=== PATIENT | male | born 1960 | race African-American/Black ===

== ENCOUNTER 2018-01-12 02:20 | Emergency (ER) | payer MEDICARE, MEDICAID ==
[2018-01-12] MEDS ORDERED: LIDOCAINE 2% VISCOUS SOLN 20 ML UDCUP PO ONE (02:56)
[2018-01-12] MEDS ORDERED: METOCLOPRAMIDE HCL ORAL SOLN 10 MG/10 ML UDCUP PO ONE (02:56)
[2018-01-12] MEDS ORDERED: MAG HYDROX/AL HYDROX/SIMETH SUSP 30 ML UDCUP PO ONE (02:56)
[2018-01-12] MEDS ORDERED: NORMAL SALINE 1000 ML 1,000 ML IV ONE (02:56)
--- NOTE | 2018-01-12 02:59 | ER Document Report ---
ED General - General Chief Complaint: Chest Pain Stated Complaint: NOT FEELING WELL Time Seen by Provider: 01/12/18 02:56 TRAVEL OUTSIDE OF THE [place] IN LAST 30 DAYS: No - HPI Notes: Patient is a 57-year-old male with a history of diabetes, hypertension, tobacco abuse who presents to the ED complaining of epigastric abdominal pain 2 days. Patient states that the pain has been steady the entire time and does not worsen with ambulation. Patient states that pushing in his stomach and using his muscles to sit upright make the pain worse. He has not had any hematemesis , melena, or hematochezia. Patient states that he is still eating and drinking without any difficulties otherwise. He is urinating normally having normal bowel movements. He denies any drug allergies. Patient has not had any cardiac stents or bypass performed in the past. He is not on any blood thinners. Patient states that he has been taking his medications at home regularly without any side effects to note. Denies any headache, fever, neck pain, URI, sore throat, chest pain, palpitations, syncope, cough, shortness of breath, wheeze, dyspnea, nausea/vomiting/diarrhea, urinary retention, dysuria, hematuria, loss of control of bowel or bladder, numbness/tingling, saddle anesthesia, muscle paralysis/weakness, or rash. - Related Data Allergies/Adverse Reactions: No Known Allergies Allergy (Unverified 01/13/15 22:32) Past Medical History - Social History Smoking Status: Current Every Day Smoker Family History: None - Past Medical History Cardiac Medical History: Reports: Hx Heart Attack, Hx Hypercholesterolemia, Hx Hypertension Endocrine Medical History: Reports: Hx Diabetes Mellitus Type 2 Review of Systems - Review of Systems -: Yes All other systems reviewed and negative Physical Exam - Vital signs Vitals: Temp Pulse Resp BP Pulse Ox 98.4 F 92 24 H 151/91 H 98 01/12/18 02:34 01/12/18 02:34 01/12/18 02:34 01/12/18 02:34 01/12/18 02:34 - Notes Notes: PHYSICAL EXAMINATION: GENERAL: Well-appearing, well-nourished and in no acute distress. A&Ox4. Answers questions appropriately. HEAD: Atraumatic, normocephalic. EYES: Pupils equal round and reactive to light, extraocular movements intact, sclera anicteric, conjunctiva are normal. ENT: Nares patent and without discharge. oropharynx clear without exudates. No tonsilar hypertrophy or erythema. Moist mucous membranes. NECK: Normal range of motion, supple without lymphadenopathy Chest: non-tender. equal rise/fall. LUNGS: Breath sounds clear to auscultation bilaterally and equal. No wheezes rales or rhonchi. HEART: Regular rate and rhythm without murmurs, rubs, gallops. ABDOMEN: Soft, nondistended abdomen. No guarding, no rebound. No masses appreciated. Normal bowel sounds present. No CVA tenderness bilaterally. + moderate epigastric tenderness (corresponds to pain described). No white sign. No tenderness at Mcburney point. Musculoskeletal: FROM to passive/active. Strength 5+/5. Extremities: No cyanosis, clubbing, or edema b/l. Peripheral pulses 2+. Capillary refill less than 3 seconds. NEUROLOGICAL: Cranial nerves grossly intact. Normal speech, normal gait. Normal sensory, motor exams PSYCH: Normal mood, normal affect. SKIN: Warm, Dry, normal turgor, no rashes or lesions noted. Course - Re-evaluation Re-evalutation: 01/12/18 05:15 Patient is an afebrile, well-hydrated, 57-year-old male who presents to the ED with epigastric abdominal pain, suspect gastritis. Vitals are acceptable. PE is otherwise unremarkable. CBC, CMP, lipase, cardiac enzymes/EKG, chest x-ray were all unremarkable for any acute pathology. GI cocktail was provided which improved symptoms. Patient has moderate epigastric abdominal tenderness to palpation which correlates with his pain described. His H&P provides a strong case for a GI issue at this time and not cardiac. Patient is ambulatory without any dyspnea on exertion or worsening pain. Patient was also given Zofran as well as fluids. No other labs or imaging warranted at this time based on H&P. Low suspicion/risk for acute appendicitis, bowel obstruction, acute cholecystitis, perforated diverticulitis, incarcerated hernia, pancreatitis, perforated ulcer, peritonitis, sepsis, testicular torsion, or other systemic emergent condition at this time. Patient is aware that his condition can change from initial presentation and he needs to monitor symptoms closely and seek medical attention if any acute changes. I will send him home with a prescription for Carafate as well as omeprazole. Conservative measures otherwise for symptoms. Recheck with PCM in 2-3 days. Consider consult with a pay station collector. Return to the ED with any worsening/concerning symptoms otherwise as reviewed in discharge. Patient is in agreement. - Vital Signs Vital signs: Temp Pulse Resp BP Pulse Ox 98.4 F 92 24 H 151/91 H 98 01/12/18 02:34 01/12/18 02:34 01/12/18 02:34 01/12/18 02:34 01/12/18 02:34 - Laboratory Result Diagrams: 01/12/18 03:10 01/12/18 04:09 Laboratory results interpreted by me: 01/12/18 01/12/18 03:01 04:09 Chloride 108 H Carbon Dioxide 21 L Glucose 164 H POC Glucose 165 H Creatine Kinase 261 H Discharge - Discharge Clinical Impression: Epigastric abdominal pain Condition: Stable Disposition: HOME, SELF-CARE Instructions: Antacid Therapy ([facility]), Evaluation of Upper Abdominal Pain ([facility]) Additional Instructions: Maintain adequate fluid and food intake Avoid alcohol, spices, citrus, caffeine, eating large meals, eating late at night Zofran as needed tylenol if needed Monitor for any worsening symptoms Make sure you are staying hydrated enough to urinate and have normal BM's Recheck with your PCM in 2-3 days Consider consult with Gastroenterology for ongoing/worsening symptoms Return to the ED with any worsening symptoms and/or development of fever, headache, chest pain, palpitations, syncope, shortness of breath, trouble breathing, abdominal pain, n/v/d, blood in stool/urine, weakness, or other worsening symptoms that are concerning to you. Prescriptions: RX: Omeprazole 20 mg PO DAILY #30 tablet.dr Rodriguezralfate [Carafate] 1 gm PO QID PRN #420 ml PRN Reason: Forms: Elevated Blood Pressure, Smoking Cessation Education Referrals: KATHRINE NUNN MD [ACTIVE STAFF] - Follow up as needed MARIA C FLORES MD [ACTIVE STAFF] - Follow up as needed
[2018-01-12 03:21] LABS: ABSOLUTE EOSINOPHILS # (AUTO) 0.2 10^3/uL (0.0-0.6); ABSOLUTE LYMPHOCYTES (AUTO) 3.1 10^3/uL (0.5-4.7); ABSOLUTE MONOCYTES (AUTO) 0.5 10^3/uL (0.1-1.4); BASOPHILS % (AUTO) 0.2 % (0-2); HEMATOCRIT 44.3 % (37.9-51.0); HEMOGLOBIN 15.3 g/dL (13.5-17.0); MEAN CORPUSCULAR HEMOGLOBIN 32.6 pg (27.0-33.4); MEAN CORPUSCULAR HGB CONC 34.6 g/dL (32.0-36.0); MEAN CORPUSCULAR VOLUME 95 fl (80-97); MONOCYTES % (AUTO) 6.3 % (3-13); PLATELET COUNT 232 10^3/uL (150-450); RED BLOOD COUNT 4.69 10^6/uL (4.35-5.55); SEGMENTED NEUTROPHILS % (AUTO) 51.5 % (42-78); TOTAL CELLS COUNTED % (AUTO) 100 %; WHITE BLOOD COUNT 7.8 10^3/uL (4.0-10.5)
[2018-01-12 03:38] LABS: INTERNATIONAL RATION (INR) 0.97; PROTHROMBIN TIME 13.6 SEC (11.4-15.4)
[2018-01-12 03:58] LABS: CREATINE KINASE MB 0.94 ng/mL (<4.55)
[2018-01-12 04:00] LABS: TROPONIN I < 0.012 ng/mL
--- NOTE | 2018-01-12 04:04 | RADIOLOGY REPORT (SQ) ---
EXAM DESCRIPTION: CHEST SINGLE VIEW CLINICAL HISTORY: 57 years Male, chest pain COMPARISON: None. NUMBER OF VIEWS/TECHNIQUE: 1/AP LIMITATIONS: None. FINDINGS: Normal lung volume, clear parenchyma, normal cardiac silhouette, and intact bony thorax. IMPRESSION: No acute cardiopulmonary findings.
[2018-01-12 04:37] LABS: ALANINE AMINOTRANSFERASE 25 U/L (21-72); ALBUMIN 4.4 g/dL (3.5-5.0); ALKALINE PHOSPHATASE 67 U/L (38-126); ANION GAP 15 (5-19); ASPARTATE AMINO TRANSFERASE 24 U/L (17-59); BILIRUBIN,DIRECT 0.2 mg/dL (0.0-0.4); BILIRUBIN,TOTAL 0.3 mg/dL (0.2-1.3); BLOOD UREA NITROGEN 10 mg/dL (7-20); CALCIUM 9.2 mg/dL (8.4-10.2); CARBON DIOXIDE 21 mmol/L (22-30); CHLORIDE 108 mmol/L (98-107); CREATINE KINASE 261 U/L (55-170); GLUCOSE 164 mg/dL (75-110); LIPASE 191.3 U/L (23-300); POTASSIUM 4.3 mmol/L (3.6-5.0); SODIUM 143.8 mmol/L (137-145); TOTAL PROTEIN 7.1 g/dL (6.3-8.2)
[2018-01-12] MEDS ORDERED: TRAMADOL HCL 50 MG TABLET PO ONE (05:14)
[2018-01-12] MEDS ORDERED: ACETAMINOPHEN 325 MG TABLET PO ONE (05:20)
[2018-01-12 05:25] VITALS: BP 142/86
--- NOTE | 2018-01-12 07:50 | EKG REPORT ---
SEVERITY:- BORDERLINE ECG - SINUS RHYTHM PROBABLE LEFT ATRIAL ABNORMALITY : Confirmed by: Turner Mendez MD 12-Jan-2018 07:48:36
== END 2018-01-12 05:22 | disposition home or self-care (01) ==
LOC: ER 02:20
DX: R10.13 Epigastric pain (principal); I10 Essential (primary) hypertension; I25.2 Old myocardial infarction; E11.9 Type 2 diabetes mellitus without complications; F17.200 Nicotine dependence, unspecified, uncomplicated
CPT/HCPCS: 93005; 99285; 36415; 82553; 82962; 82550; 83690; 85025; 85610; 80053; 84484; 71045; 93010; A9270 ×2; J3490; J7030

== ENCOUNTER 2020-10-08 10:37 | Inpatient (IN) | payer MEDICAID, MEDICARE ==
[2020-10-08] MEDS ORDERED: NORMAL SALINE 1000 ML 1,000 ML IV ONE (10:51)
[2020-10-08] MEDS ORDERED: DEXTROSE 5%-WATER 250 ML with NOREPINEPHRINE BITARTRATE 4 MG IV PRN ×2 (10:51)
--- NOTE | 2020-10-08 10:53 | ER Document Report ---
ED General - General Stated Complaint: POST ARREST/ALTERED MENTAL STATUS Time Seen by Provider: 10/08/20 10:50 Notes: 52-year-old male found down, altered mental status. Apparently was postarrest pulseless found and ACLS done by fire, EMS arrived to find him in an agonal breathing pattern altered mental status hypoxia with a "sinus arrhythmia" on his EKG Did not require shocks. IO administered fluid was given. Remained hypotensive. Was RSI intubated with rocuronium and ketamine. No other info is available. TRAVEL OUTSIDE OF THE [place] IN LAST 30 DAYS: No - Related Data Allergies/Adverse Reactions: No Known Allergies Allergy (Unverified 01/13/15 22:32) Past Medical History - General Information source: Emergency Med Personnel Cannot obtain history due to: Unstable vital signs - Social History Smoking Status: Unknown if Ever Smoked Family History: None - Past Medical History Cardiac Medical History: Reports: Hx Heart Attack, Hx Hypercholesterolemia, Hx Hypertension Endocrine Medical History: Reports: Hx Diabetes Mellitus Type 2 Renal/ Medical History: Denies: Hx Peritoneal Dialysis Review of Systems - Review of Systems Notes: REVIEW OF SYSTEMS PHYSICAL EXAMINATION General: Did Head: Atraumatic, normocephalic ENT: Tube in place no broken teeth Eyes: Unresponsive pupils 3 mm bilaterally Neck: No JVD, supple, no guarding CVS: Mild tachycardia thready pulses throughout except for carotid Resp: Good breath sounds bilaterally with bagging GI: Nondistended, soft, Ext: No deformities, no edema, right IO line in place t Back: No CVA or midline TTP Skin: Lesion versus rash in the pannus of the abdomen midline Lymphatic: No lymphadeopathy noted Neuro: Positive to painful stimulus Physical Exam - Vital signs Vitals: Resp 20 10/08/20 10:37 Course - Re-evaluation Re-evalutation: 10/08/20 11:59 Presents after what sounds like cardiorespiratory arrest from unclear etiology hypotensive on arrival Unclear clinical picture with no prehospital history and spotty information Patient was placed on [id number] and was bagged without issue. 10/08/20 12:03 EKG does not show cause. Ventilator adjusted given first ABG, tube pulled back Trope negative. Given hypothermia, have treated for sepsis with antibiotics Was given fluids pressure came up was able to stop Levophed CT does not show bleed or large stroke. There is a slight hyperdensity at the basilar tip which I would discussed with Dr. Murdock while admitting the patient. Will consider CTA. No indication for immediate TPA. Unable to contact family at this point. - Vital Signs Vital signs: Temp Pulse Resp BP Pulse Ox 14 112/81 100 10/08/20 11:45 10/08/20 11:45 10/08/20 11:45 - Laboratory Result Diagrams: 10/08/20 10:50 10/08/20 10:50 Laboratory results interpreted by me: 10/08/20 10/08/20 10/08/20 10:48 10:50 10:50 RBC 3.06 L Hgb 9.7 L Hct 29.2 L Plt Count 91 L Carbonic Acid 0.72 L ABG pCO2 23.9 L ABG pO2 451.8 H ABG HCO3 14.2 L ABG Total CO2 14.9 L ABG O2 Saturation 99.9 H Sodium 148.7 H Chloride 116 H Carbon Dioxide 15 L BUN 86 H Creatinine 1.98 H Est GFR ( Amer) 42 L Est GFR (MDRD) Non-Af 35 L Glucose 216 H Lactic Acid 10/08/20 11:03 RBC Hgb Hct Plt Count Carbonic Acid ABG pCO2 ABG pO2 ABG HCO3 ABG Total CO2 ABG O2 Saturation Sodium Chloride Carbon Dioxide BUN Creatinine Est GFR ( Amer) Est GFR (MDRD) Non-Af Glucose Lactic Acid 3.8 H - Diagnostic Test Radiology reviewed: Image reviewed, Reports reviewed - EKG Interpretation by Me EKG shows normal: Sinus rhythm Rate: Normal, Tachycardia Rhythm: NSR - Right prolonged QT Voltage: Limb leads When compared to previous EKG there are: No significant change Procedures - Additional Procedures IO insertion Notes: 10/08/20 12:03 IO: Right humerus normal technique with sterility Femoral stick venipuncture right groin. Arterial stick with 18-gauge needle and syringe pressure applied afterward Normal sterile technique Critical Care Note - Critical Care Note Total time excluding time spent on procedures (mins): 72 Comments: The above patient is critically ill. Not including procedures, but including direct re-evaluations, speaking with patient and/or consultants, interpreting results, and documenting, I spent the total amount of minute listed listed above on critical care time Discharge - Discharge Clinical Impression: Cardiopulmonary arrest Condition: Critical Disposition: ADMITTED INPATIENT Admitting Provider: Isela ([employer]) Unit Admitted: ICU
[2020-10-08] MEDS ORDERED: LIDOCAINE 2% URO-JET 5 ML KIT MM ONE (11:05)
[2020-10-08 11:07] LABS: ARTERIAL BLOOD BASE EXCESS -9.4 mmol/L; ARTERIAL BLOOD FIO2 100%; ARTERIAL BLOOD H2CO3 0.72 mmol/L (1.05-1.35); ARTERIAL BLOOD HCO3 14.2 mmol/L (20-24); ARTERIAL BLOOD O2 SATURATION 99.9 % (94-98); ARTERIAL BLOOD PCO2 23.9 mmHg (35-45); ARTERIAL BLOOD PH 7.39 (7.35-7.45); ARTERIAL BLOOD PO2 451.8 mmHg (80-100); ARTERIAL BLOOD TOTAL CO2 14.9 mmol/L (23-27)
--- NOTE | 2020-10-08 11:27 | RADIOLOGY REPORT (SQ) ---
EXAM DESCRIPTION: CHEST SINGLE VIEW IMAGES COMPLETED DATE/TIME: 10/08/2020 11:10 am REASON FOR STUDY: intub COMPARISON: None. EXAM PARAMETERS: NUMBER OF VIEWS: One view TECHNIQUE: Single frontal radiograph of the chest. RADIATION DOSE: N/A LIMITATIONS: None. FINDINGS: TEMPORARY SUPPORT DEVICES:ETT at the level of the gavi. Should be pulled back 2 to 3 cm . LUNGS AND PLEURA: No opacities. No masses. No effusions. No pneumothorax. MEDIASTINUM AND HILAR STRUCTURES: No masses. Contour normal. HEART AND VASCULAR STRUCTURES: Heart size normal. Normal vascularity. Aorta normal for age BONES: No acute findings. OTHER: No other significant finding. IMPRESSION: NO ACUTE RADIOGRAPHIC FINDING IN THE CHEST. ETT needs repositioning. TECHNICAL DOCUMENTATION: JOB ID: [id number] 2010 [employer]- All Rights Reserved Reading location - IP/workstation name: [email or web address]
[2020-10-08 11:32] LABS: HEMATOCRIT 29.2 % (37.9-51.0); HEMOGLOBIN 9.7 g/dL (13.5-17.0); MEAN CORPUSCULAR HEMOGLOBIN 31.8 pg (27.0-33.4); MEAN CORPUSCULAR HGB CONC 33.4 g/dL (32.0-36.0); MEAN CORPUSCULAR VOLUME 95 fl (80-97); RED BLOOD COUNT 3.06 10^6/uL (4.35-5.55); RED CELL DISTRIBUTION WIDTH 13.8 % (11.5-14.0); WHITE BLOOD COUNT 8.1 10^3/uL (4.0-10.5)
[2020-10-08 11:41] LABS: ANION GAP 18 (5-19); BLOOD UREA NITROGEN 86 mg/dL (7-20); CALCIUM 9.3 mg/dL (8.4-10.2); CARBON DIOXIDE 15 mmol/L (22-30); CHLORIDE 116 mmol/L (98-107); GLUCOSE 216 mg/dL (75-110); POTASSIUM 3.6 mmol/L (3.6-5.0)
[2020-10-08 11:53] LABS: PLATELET COUNT 91 10^3/uL (150-450)
[2020-10-08 11:54] LABS: ABSOLUTE LYMPHOCYTES# (MANUAL) 2.1 10^3/uL (0.5-4.7); ABSOLUTE MONOCYTES # (MANUAL) 0.2 10^3/uL (0.1-1.4); BASOPHILS % (MANUAL) 0 % (0-2); EOSINOPHILS % (MANUAL) 0 % (0-6); LYMPHOCYTES % (MANUAL) 26 % (13-45); MONOCYTES % (MANUAL) 3 % (3-13); SEGMENTED NEUTROPHILS % (MAN) 71 % (42-78); TOTAL CELLS COUNTED 100
--- NOTE | 2020-10-08 11:55 | EKG REPORT ---
SEVERITY:- ABNORMAL ECG - SINUS RHYTHM ATRIAL PREMATURE COMPLEX BORDERLINE PROLONGED QT INTERVAL NONSPECIFIC ST-T CHANGES, DIFFUSE : Confirmed by: Turner Mendez MD 08-Oct-2020 11:54:59
[2020-10-08 11:57] LABS: RBC MORPHOLOGY COMMENT NORMO-CYTIC/CHROMIC
[2020-10-08 11:58] LABS: PLATELET COMMENT DECREASED
[2020-10-08] MEDS ORDERED: CEFTRIAXONE 1 GM/D5W RTU 1 GM/50 ML RTUPB IV ONE (12:00)
[2020-10-08] MEDS ORDERED: ACETAMINOPHEN 325 MG TABLET NG PRN (12:30)
[2020-10-08] MEDS ORDERED: PHARMACY COMMUNICATION ORDER MC NR (12:30)
[2020-10-08] MEDS ORDERED: ONDANSETRON HCL INJ/PF 4 MG/2 ML SDV IV PRN (12:30)
--- NOTE | 2020-10-08 12:30 | CRITICAL CARE ADMISSION REPORT ---
HPI Date:: 10/08/20 Time:: 12:00 Reason for ICU Reason:: Intubated post arrest. Admission Date/Time & PCP: Admission Date/Time: Primary Care Provider: HPI: This patient is a 60 yo man who was found on the floor with a weak and thready pulse. EMS intubated him, he did not have CPR. His down time is not known. Justin rologically he is non-responsive. He is wearing a diaper from home which probably indicates some for of dysfunction. Family not available but by report they were not able to provide much information. History obtained from:: Dr. Sheriff - Diagnosis/Plan (1) Cardiopulmonary arrest Is this a current diagnosis for this admission?: Yes Plan: He is rescusitated but we know no other meaningful information. Plan Summary: Support in ICU. Assess for cause and await neuro return, if any. Past Medical History Medical History: Other - Not available Cardiac Medical History: Reports: Myocardial Infarction, Hyperlipidema, Hypertension Endocrine Medical History: Reports: Diabetes Mellitus Type 2 Past Surgical History Past Surgical History: Reports: Other - Not known Social/Family History - Social History Lives with: Family Smoking Status: Unknown if Ever Smoked - Medication/Allergies Allergies/Adverse Reactions: No Known Allergies Allergy (Unverified 01/13/15 22:32) Review of Systems ROS unobtainable: Due to endotracheal tube, Due to mental status Physical Exam Vital Signs: Temp Pulse Resp BP Pulse Ox 14 104/84 100 10/08/20 12:10 10/08/20 12:10 10/08/20 12:10 Intake & Output 10/07/20 10/08/20 10/09/20 06:59 06:59 06:59 Intake Total 1011 Balance 1011 Weight 75.9 kg Weight/Height Weight 75.9 kg General appearance: PRESENT: no acute distress Head exam: PRESENT: atraumatic, normocephalic Eye exam: PRESENT: conjunctiva pink. ABSENT: scleral icterus Ear exam: PRESENT: normal external ear exam Mouth exam: PRESENT: moist, tongue midline Respiratory exam: PRESENT: clear to auscultation rossy. ABSENT: rales, rhonchi, wheezes Cardiovascular exam: PRESENT: RRR. ABSENT: diastolic murmur, rubs, systolic m urmur GI/Abdominal exam: PRESENT: normal bowel sounds, soft. ABSENT: distended, guarding, mass, organolmegaly, rebound, tenderness Rectal exam: PRESENT: deferred Gentrourinary exam: PRESENT: indwelling catheter Extremities exam: PRESENT: full ROM. ABSENT: calf tenderness, clubbing, pedal edema Musculoskeletal exam: PRESENT: normal inspection Neurological exam: PRESENT: other - At this time, no cough, gag, response to pain, voice, touch. GCS 3. Tubes/Lines: PRESENT: Endotracheal Tube, Nasogastic Tube, Other - IO Laboratory/Radiographs Laboratory Results: 10/08/20 10:50 10/08/20 10:50 10/08/20 10/08/20 10/08/20 10:48 10:50 10:50 WBC 8.1 RBC 3.06 L Hgb 9.7 L Hct 29.2 L MCV 95 MCH 31.8 MCHC 33.4 RDW 13.8 Plt Count 91 L Seg Neutrophils % Not Reportable Carbonic Acid 0.72 L HCO3/H2CO3 Ratio 19:1 ABG pH 7.39 ABG pCO2 23.9 L ABG pO2 451.8 H ABG HCO3 14.2 L ABG O2 Saturation 99.9 H ABG Base Excess -9.4 FiO2 100% Sodium 148.7 H Potassium 3.6 Chloride 116 H Carbon Dioxide 15 L Anion Gap 18 BUN 86 H Creatinine 1.98 H Est GFR ( Amer) 42 L Glucose 216 H Lactic Acid Calcium 9.3 TSH 10/08/20 10/08/20 11:03 11:03 WBC RBC Hgb Hct MCV MCH MCHC RDW Plt Count Seg Neutrophils % Carbonic Acid HCO3/H2CO3 Ratio ABG pH ABG pCO2 ABG pO2 ABG HCO3 ABG O2 Saturation ABG Base Excess FiO2 Sodium Potassium Chloride Carbon Dioxide Anion Gap BUN Creatinine Est GFR ( Amer) Glucose Lactic Acid 3.8 H Calcium TSH 11.80 H 10/08/20 10:50 Troponin I 0.036 Impressions: Chest X-Ray 10/08/20 10:50 IMPRESSION: NO ACUTE RADIOGRAPHIC FINDING IN THE CHEST. ETT needs repositioning. EKG: SR, nonspecific ST-T changes. All labs, radiographs, diagnostic studies and EKGs were personally reviewed: Yes In addition, reports of radiographic and diagnostic studies were read: Yes Critical Time Critical Time (minutes): 40 -: The care of a critically ill patient is dynamic. This note represents a static moment in the admission process. Orders and treatments may be given simultaneously and urgently, and time is not patient registration representative of the treatment process. This patient requires Critical Care secondary to life threatening organ or limb dysfunction. Without Critical Care services, the patient is at risk for increased mortality and morbidity.
--- NOTE | 2020-10-08 12:34 | RADIOLOGY REPORT (SQ) ---
EXAM DESCRIPTION: CT HEAD WITHOUT IMAGES COMPLETED DATE/TIME: 10/08/2020 12:08 pm REASON FOR STUDY: intub COMPARISON: None. TECHNIQUE: Axial images acquired through the brain without intravenous contrast. Images reviewed wi th bone, brain and subdural windows. Additional sagittal and coronal reconstructions were generated. Images stored on PACS. All CT scanners at this facility use dose modulation, iterative reconstruction, and/or weight based d osing when appropriate to reduce radiation dose to as low as reasonably achievable (ALARA). [facility]: Dose Right [facility]: CareDose [facility]: Dose Right [facility]: Teradose 4D [facility]: [employer] RADIATION DOSE: CT Rad equipment meets quality standard of care and radiation dose reduction techniq ues were employed. CTDIvol: 53.2 mGy. DLP: 2141 mGy-cm. mGy. LIMITATIONS: Motion artifact throughout the study. Patient scanned twice. Anterior aspect of the f rontal bone and frontal sinus cropped from the field of view. FINDINGS: Mild motion artifact. No CT evidence of acute large territory ischemic change, acute intracranial hemorrhage, mass effect, or midline shift. Moderate bifrontal and biparietal chronic small vessel ischemic changes present. 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 Fluid throughout the nasopharynx. Frontal sinus anterior wall cropped from the field of view. Bony structures otherwise unremarkable. IMPRESSION: No acute findings Moderate bifrontal and biparietal chronic small vessel ischemic changes. Old infarcts in the deep pe riventricular bifrontal white matter and basal ganglia. EVIDENCE OF ACUTE STROKE: NO. COMMENT: Quality ID # [id number]: Final reports with documentation of one or more dose reduction techniques (e.g., Automated exposure control, adjustment of the mA and/or kV according to patient size, use of iterative reconstruction technique) TECHNICAL DOCUMENTATION: JOB ID: [id number] 2010 [employer]- All Rights Reserved Reading location - IP/workstation name: [email or web address]
[2020-10-08] MEDS: RINGERS SOLUTION,LACTATED 1,000 ML IV PRN ×2 (12:53→21:07)
[2020-10-08 13:02] LABS: APPEARANCE,URINE CLOUDY; BILIRUBIN,URINE NEGATIVE (NEGATIVE); COLOR,URINE AMBER; GLUCOSE, URINE 50 mg/dL (NEGATIVE); KETONES,URINE NEGATIVE (NEGATIVE); LEUKOCYTE ESTERASE,URINE MODERATE (NEGATIVE); NITRITE,URINE NEGATIVE (NEGATIVE); PROTEIN,URINE 100 mg/dL (NEGATIVE); URINE SPECIFIC GRAVITY 1.016
--- NOTE | 2020-10-08 13:28 | RADIOLOGY REPORT (SQ) ---
EXAM DESCRIPTION: KUB/ABDOMEN (SINGLE VIEW) IMAGES COMPLETED DATE/TIME: 10/08/2020 1:16 pm REASON FOR STUDY: Check Placement of NG Tube COMPARISON: None. NUMBER OF VIEWS: One view. TECHNIQUE: Supine radiographic image of the abdomen acquired. LIMITATIONS: None. FINDINGS: BOWEL GAS PATTERN: Normal bowel gas pattern. No dilated loops. CALCIFICATIONS: No suspicious calcifications. SOFT TISSUES: No gross mass or suggestion of organomegaly. HARDWARE: NG tube tip in the stomach fundus. Rectal thermometer. BONES: No acute fracture. No worrisome bone lesions. OTHER: No other significant finding. IMPRESSION: NG tube tip in the fundus of the stomach. TECHNICAL DOCUMENTATION: JOB ID: [id number] 2010 [employer]- All Rights Reserved Reading location - IP/workstation name: [email or web address]
[2020-10-08] MEDS ORDERED: ENOXAPARIN SODIUM INJ 40 MG/0.4 ML DISP.SYRIN SUBCUT SCH (14:00)
[2020-10-08] MEDS ORDERED: PANTOPRAZOLE SODIUM 40 MG VIAL IV SCH (14:00)
[2020-10-08] MEDS ORDERED: NOREPINEPHRINE BITARTRATE INJ/PF 4 MG/4 ML SDV IV ONE ×2 (14:16→20:12)
[2020-10-08] MEDS: DEXTROSE 5%-WATER 250 ML with NOREPINEPHRINE BITARTRATE 4 MG IV PRN ×6 (15:22→21:13)
--- NOTE | 2020-10-08 16:37 | Progress Note ---
Provider Note Provider Note: Family arrived. Daughter Lety states her father has not been acting right for a week to 10 days. He does smoke. He is behaving like a hypercarbic respiratory failure. pH is normal. Not waking up yet. Diaper placed by family before ED. Lives alone.
[2020-10-08] MEDS ORDERED: NORMAL SALINE 1000 ML 1,000 ML IV PRN (16:39)
[2020-10-08] MEDS ORDERED: FENTANYL CITRATE INJ/PF 100 MCG/2 ML AMPUL IV PRN (20:10)
[2020-10-08] MEDS ORDERED: FENTANYL CITRATE INJ/PF 100 MCG/2 ML AMPUL ONE (20:13)
[2020-10-08] MEDS ORDERED: RINGERS SOLUTION,LACTATED 1,000 ML IV ONE ×2 (21:00→23:59)
[2020-10-08] MEDS: MIDAZOLAM HCL 50 MG/100 ML RTUINJ IV PRN (22:18)
[2020-10-08] MEDS ORDERED: MIDAZOLAM HCL 50 MG/100 ML RTUINJ ONE (22:18)
[2020-10-08] MEDS ORDERED: NORMAL SALINE INJ/PF 0.9% 10 ML SDV IV PRN (23:27)
[2020-10-08] MEDS ORDERED: VASOPRESSIN INJ 20 UNIT/1 ML VIAL ONE (23:27)
[2020-10-08] MEDS ORDERED: DEXTROSE 5%-WATER 250 ML with VASOPRESSIN 100 UNIT IV PRN ×2 (23:29)
--- NOTE | 2020-10-08 23:39 | RADIOLOGY REPORT (SQ) ---
EXAM DESCRIPTION: XR CHEST 1 VIEW COMPLETED DATE/TME: 10/08/2020 23:13 CLINICAL HISTORY: TLC Placement COMPARISON: 10/08/2020 FINDINGS: Single frontal view of the chest. Tubes and lines: Right IJ central venous catheter tip in the SVC. NG tube with tip below the diaphragm. Endotracheal tube with tip 5 cm above the gavi. Leads overlie the chest. Cardiomediastinal silhouette: Stable Lungs: No consolidation, pneumothorax, or pleural effusion. Bones: Stable. Upper abdomen: Stable. IMPRESSION: 1. Right IJ central venous catheter in appropriate position. Endotracheal tube in appropriate position.
[2020-10-09] MEDS ORDERED: SODIUM BICARBONATE 8.4% INJ 50 MEQ/50 ML DISP.SYRIN ONE ×2 (00:15→02:00)
[2020-10-09] MEDS: DEXTROSE 5%-WATER 250 ML with EPINEPHRINE/PF 1 MG IV PRN ×6 (00:43→04:20)
[2020-10-09] MEDS ORDERED: EPINEPHRINE INJ/PF 1 MG/1 ML AMPULE ONE ×2 (00:46→03:48)
[2020-10-09 00:53] LABS: ARTERIAL BLOOD BASE EXCESS -13.5 mmol/L; ARTERIAL BLOOD H2CO3 0.51 mmol/L (1.05-1.35); ARTERIAL BLOOD HCO3 9.7 mmol/L (20-24); ARTERIAL BLOOD O2 SATURATION 96.3 % (94-98); ARTERIAL BLOOD PH 7.37 (7.35-7.45); ARTERIAL BLOOD PO2 83.4 mmHg (80-100); ARTERIAL BLOOD TOTAL CO2 10.2 mmol/L (23-27); VENOUS BLOOD BASE EXCESS -13.6 mmol/L; VENOUS BLOOD HCO3 10.8 mmol/L (20-32); VENOUS BLOOD PCO2 21.3 mmHg (35-63); VENOUS BLOOD PH 7.32 (7.30-7.42)
[2020-10-09 00:58] LABS: ARTERIAL BLOOD FIO2 30%
[2020-10-09 01:05] LABS: ARTERIAL BLOOD PCO2 17.1 mmHg (35-45)
[2020-10-09] MEDS ORDERED: NOREPINEPHRINE BITARTRATE INJ/PF 4 MG/4 ML SDV IV ONE ×2 (01:13→02:23)
[2020-10-09] MEDS ORDERED: SODIUM BICARBONATE 8.4% INJ 50 MEQ/50 ML DISP.SYRIN IV ONE (01:41)
[2020-10-09] MEDS: DEXTROSE 5%-WATER 250 ML with NOREPINEPHRINE BITARTRATE 4 MG IV PRN ×2 (01:49)
[2020-10-09] MEDS: RINGERS SOLUTION,LACTATED 1,000 ML IV PRN (01:50)
[2020-10-09] MEDS ORDERED: EPINEPHRINE INJ 1 MG/10 ML DISP.SYRIN ONE ×4 (02:00→02:32)
[2020-10-09 02:47] VITALS: BP 171/109
[2020-10-09] MEDS: MIDAZOLAM HCL 50 MG/100 ML RTUINJ IV PRN (04:07)
--- NOTE | 2020-10-09 05:20 | Progress Note ---
Provider Note Provider Note: At 2205 Mr Estrada became hypotensive with a SBP 60's and a heart rate of 40's. He was PEA. CPR initiated 1 amp epi and 1 bicarb Rosc at 2211. Attempted to call Samae daughter and Etienne daughter with no answer, left message to call the ICU.
[2020-10-09 05:22] LABS: HEMATOCRIT 25.2 % (37.9-51.0); MEAN CORPUSCULAR HEMOGLOBIN 31.3 pg (27.0-33.4); MEAN CORPUSCULAR HGB CONC 31.1 g/dL (32.0-36.0)
--- NOTE | 2020-10-09 05:24 | Progress Note ---
Provider Note Provider Note: At 0014 pt again became hypotensive SBP in the 50's heart rate 40's, Pt PEA CPR initiated 1 amp epi 1 bicarb acheived ROSC at 0019.
--- NOTE | 2020-10-09 05:27 | Progress Note ---
Provider Note Provider Note: 0046 hypotensive SBP 60's bradycardic in the 40's PEA arrest CPR initiated 1 ep, 1 bicarb achieved ROSC at 0051 Epi drip started.
[2020-10-09 05:40] LABS: ALBUMIN 2.2 g/dL (3.5-5.0); ALKALINE PHOSPHATASE 45 U/L (38-126); ASPARTATE AMINO TRANSFERASE 99 U/L (17-59); BILIRUBIN,DIRECT 1.5 mg/dL (0.0-0.4); BILIRUBIN,TOTAL 2.6 mg/dL (0.2-1.3); BLOOD UREA NITROGEN 70 mg/dL (7-20); CALCIUM 8.3 mg/dL (8.4-10.2); POTASSIUM 3.5 mmol/L (3.6-5.0)
[2020-10-09] MEDS ORDERED: FENTANYL CITRATE INJ/PF 100 MCG/2 ML AMPUL IV ONE (05:40)
[2020-10-09 05:46] LABS: CHLORIDE 110 mmol/L (98-107)
[2020-10-09 05:56] LABS: FREE T3 1.59 pg/mL (2.77-5.27); FREE T4 (FREE THYROXINE) 0.78 ng/dL (0.78-2.19)
[2020-10-09 06:02] LABS: GLUCOSE 413 mg/dL (75-110)
[2020-10-09 06:03] LABS: CARBON DIOXIDE 9 mmol/L (22-30)
[2020-10-09 06:10] LABS: THYROID STIMULATING HORMONE 3.8 uIU/mL (0.47-4.68)
[2020-10-09 06:13] LABS: HEMOGLOBIN 7.8 g/dL (13.5-17.0)
[2020-10-09 06:14] LABS: MEAN CORPUSCULAR VOLUME 101 fl (80-97); PLATELET COUNT 61 10^3/uL (150-450); WHITE BLOOD COUNT 19.3 10^3/uL (4.0-10.5)
[2020-10-09 06:15] LABS: ABSOLUTE LYMPHOCYTES# (MANUAL) 2.3 10^3/uL (0.5-4.7); ABSOLUTE MONOCYTES # (MANUAL) 0.4 10^3/uL (0.1-1.4); BASOPHILS % (MANUAL) 0 % (0-2); EOSINOPHILS % (MANUAL) 0 % (0-6); LYMPHOCYTES % (MANUAL) 12 % (13-45); MONOCYTES % (MANUAL) 2 % (3-13); NUCLEATED RED BLOOD CELLS 1 /100 WBC (0); SEGMENTED NEUTROPHILS % (MAN) 86 % (42-78); TOTAL CELLS COUNTED 100
[2020-10-09 06:16] LABS: ANISOCYTOSIS SLIGHT; POLYCHROMASIA SLIGHT; TOXIC GRANULATION SLIGHT
[2020-10-09 06:17] LABS: PLATELET COMMENT DECREASED; SCHISTOCYTES SLIGHT
[2020-10-09 06:31] LABS: ANION GAP 22 (5-19)
--- NOTE | 2020-10-09 06:58 | Death Summary ---
Summary Date : 10/09/20 Time of :: 05:46 Autopsy: No Resuscitation Status: Comfort Measures Only - Final Diagnosis (1) Cardiopulmonary arrest Is this a current diagnosis for this admission?: Yes Hospital Course:: Mr Pietro Estrada Presented to the ED status post cardiac arrest from unclear etiology hypotensive on arrival. ACLS done by fire, EMS arrived to find him in an agonal breathing pattern altered mental status hypoxia with a "sinus arrhythmia" on his EKG. Unclear clinical picture with no prehospital history. EKG did not show cause. Trope negative. Given hypothermia, was treated for sepsis with antibiotics. In the ED Was given fluids responded for short period and became hypotensive, started on Levo had a total of 4L LR CT does not show bleed or large stroke. At 2206 pt went into PEA arrest CPR initiated 1 epi and 1 bicarb and immediately achieved ROSC. Again at 0014 and 0046 again went into PEA arrest CPR and 1 epi 1 bicarb given both times and epi drip started at 0050. Attempts made to call family with no answer and left message to call the ICU. 0424 pt again went into PEA arrest he was noted to have a large amount of dark red blood coming through the NGT 1 epi 1 bacarb and CPR, achieved ROSC. Spoke with Etienne daughter and other children at bedside. 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
--- NOTE | 2020-10-09 08:40 | EKG REPORT ---
SEVERITY:- ABNORMAL ECG - SINUS RHYTHM NONSPECIFIC T ABNORMALITIES, DIFFUSE LEADS : Confirmed by: Turner Mendez MD 09-Oct-2020 08:39:57
== END 2020-10-09 05:46 | disposition left against medical advice (07) | DRG 298 ==
LOC: ER 10:37 → EH 12:11 → ICU 15:20
PROVIDERS: ADMIT Anesthesiology; ATTEND Anesthesiology
PROC: 3E0A3GC Introduction of Other Therapeutic Substance into Bone Marrow, Percutaneous Approach (ICD-10-PCS; principal; 2020-10-08)
PROC: 5A1935Z Respiratory Ventilation, Less than 24 Consecutive Hours (ICD-10-PCS; 2020-10-08)
DX: I46.9 Cardiac arrest, cause unspecified (principal); I95.9 Hypotension, unspecified; R68.0 Hypothermia, not associated with low environmental temperature; E11.9 Type 2 diabetes mellitus without complications; I25.2 Old myocardial infarction; Z20.828 Contact with and (suspected) exposure to other viral communicable diseases
CPT/HCPCS: 36415; 70450; 71045; 74018; 80048; 80053; 81001; 82550; 82803; 82962; 83605; 84439; 84443; 84481; 84484; 85025; 87040; 87077; 87086; 87635; 92950; 93005; 93010; 94002; 94003; 96361; 96374; 99285; 99291; C9113; C9803; J0171; J0696; J2250; J3010; J3490; J7030; J7060; J7120